=== PATIENT | female | born 1990 | race Caucasian/White ===

== ENCOUNTER 2018-05-05 22:02 | Emergency (ER) | payer OTHER ==
[2018-05-05 22:49] LABS: ABSOLUTE EOSINOPHILS # (AUTO) 0.1 10^3/uL (0.0-0.6); ABSOLUTE LYMPHOCYTES (AUTO) 1.7 10^3/uL (0.5-4.7); ABSOLUTE MONOCYTES (AUTO) 0.5 10^3/uL (0.1-1.4); ABSOLUTE NEUT (AUTO) 4.4 10^3/uL (1.7-8.2); BASOPHILS % (AUTO) 0.6 % (0-2); EOSINOPHILS % (AUTO) 1.2 % (0-6); HEMATOCRIT 42.6 % (36.0-47.0); HEMOGLOBIN 13.9 g/dL (12.0-15.5); LYMPHOCYTES % (AUTO) 25.6 % (13-45); MEAN CORPUSCULAR HEMOGLOBIN 25.6 pg (27.0-33.4); MEAN CORPUSCULAR HGB CONC 32.5 g/dL (32.0-36.0); MEAN CORPUSCULAR VOLUME 79 fl (80-97); MONOCYTES % (AUTO) 7.8 % (3-13); PLATELET COUNT 304 10^3/uL (150-450); RED BLOOD COUNT 5.41 10^6/uL (3.72-5.28); RED CELL DISTRIBUTION WIDTH 15.6 % (11.5-14.0); SEGMENTED NEUTROPHILS % (AUTO) 64.8 % (42-78); TOTAL CELLS COUNTED % (AUTO) 100 %; WHITE BLOOD COUNT 6.7 10^3/uL (4.0-10.5)
[2018-05-05 23:14] LABS: ANION GAP 18 (5-19); BLOOD UREA NITROGEN 14 mg/dL (7-20); CALCIUM 9.6 mg/dL (8.4-10.2); CARBON DIOXIDE 23 mmol/L (22-30); CHLORIDE 104 mmol/L (98-107); GLUCOSE 96 mg/dL (75-110); POTASSIUM 4.6 mmol/L (3.6-5.0); SODIUM 145.2 mmol/L (137-145)
[2018-05-05] MEDS ORDERED: LIDOCAINE 5% (700 MG) TRANSDERMAL ADH..PATCH TP ONE (23:23)
[2018-05-05] MEDS ORDERED: NORMAL SALINE 1000 ML 1,000 ML IV ONE (23:23)
[2018-05-05] MEDS ORDERED: LORAZEPAM 1 MG TABLET PO ONE (23:23)
--- NOTE | 2018-05-05 23:26 | RADIOLOGY REPORT (SQ) ---
EXAM DESCRIPTION: XR CHEST 1 VIEW COMPLETED DATE/TME: 05/05/2018 22:30 CLINICAL HISTORY: 27 years Female sob COMPARISON: None. FINDINGS: The cardiomediastinal silhouette appears unremarkable. No consolidating infiltrates or pleural effusions. No pneumothorax. IMPRESSION: No acute abnormality is identified.
--- NOTE | 2018-05-05 23:28 | ER Document Report ---
ED General - General Chief Complaint: Shortness Of Breath Stated Complaint: SHORT OF BREATH Time Seen by Provider: 05/05/18 22:26 Notes: Patient is a 27-year old female without chronic medical problems beyond anxiety and depression who presents with a sensation of chest tightness and shortness of breath started just prior to arrival. The patient states that she was sitting at her hotel room, was drinking wine when she began to feel a right- sided chest discomfort worsened with deep inspiration. She states that this caused her to begin to have an anxiety attack and prompted her to come to the hospital. The patient reports that she is having a mild, aching pain to that right side of her chest present only when she takes a deep breath. She denies any history of similar symptoms in the past. Denies any history of DVT or pulmonary embolus. Does not use any form of estrogen. Denies any unilateral leg swelling. Denies any cardiac history. She states overall she feels much better since arriving at the hospital. She is visiting from [place] has been unable to contact her primary care doctor regarding this concern. TRAVEL OUTSIDE OF THE [place] IN LAST 30 DAYS: No - Related Data Allergies/Adverse Reactions: acetaminophen [From Vicodin] Allergy (Verified 05/05/18 22:15) hydrocodone [From Vicodin] Allergy (Verified 05/05/18 22:15) Past Medical History - General Information source: Patient - Social History Smoking Status: Never Smoker Chew tobacco use (# tins/day): No Frequency of alcohol use: None Drug Abuse: None Lives with: Friend Family History: Reviewed & Not Pertinent Patient has suicidal ideation: No Patient has homicidal ideation: No Renal/ Medical History: Denies: Hx Peritoneal Dialysis Review of Systems - Review of Systems Notes: Constitutional: Negative for fever. HENT: Negative for sore throat. Eyes: Negative for visual changes. Cardiovascular: Positive for chest discomfort Respiratory: Positive for shortness of breath Gastrointestinal: Negative for abdominal pain, vomiting or diarrhea. Genitourinary: Negative for dysuria. Musculoskeletal: Negative for back pain. Skin: Negative for rash. Neurological: Negative for headaches, weakness or numbness. 10 point ROS negative except as marked above and in HPI. Physical Exam - Vital signs Vitals: Temp Pulse Resp BP Pulse Ox 98.4 F 120 H 32 H 136/93 H 100 05/05/18 22:09 05/05/18 22:09 05/05/18 22:09 05/05/18 22:09 05/05/18 22:09 Interpretation: Tachycardic, Tachypneic Notes: PHYSICAL EXAMINATION: GENERAL: Well-appearing, well-nourished and in no acute distress. HEAD: Atraumatic, normocephalic. EYES: Pupils equal round and reactive to light, extraocular movements intact, sclera anicteric, conjunctiva are normal. ENT: nares patent, oropharynx clear without exudates. Moist mucous membranes. NECK: Normal range of motion, supple without lymphadenopathy LUNGS: Breath sounds clear to auscultation bilaterally and equal. No wheezes rales or rhonchi. Chest wall: Mild discomfort with palpation of the right central chest wall HEART: Regular rate and rhythm without murmurs ABDOMEN: Soft, nontender, normoactive bowel sounds. No guarding, no rebound. No masses appreciated. EXTREMITIES: Normal range of motion, no pitting or edema. No cyanosis. NEUROLOGICAL: No focal neurological deficits. Moves all extremities spontaneously and on command. PSYCH: Moderately anxious SKIN: Warm, Dry, normal turgor, no rashes or lesions noted. Course - Re-evaluation Re-evalutation: 05/05/18 23:25 Presentation of chest pain in an otherwise well appearing patient. Low clinical suspicion for ACS given clinical history, exam, EKG without ST elevations or depressions, and negative initial troponin. HEART score less than or equal to 3. PE seems mildly possible given tachycardia and pleuritic pain. D-dimer will be obtained to clarify. Patient has no risk factors for PE. CXR without evidence of pneumothorax or pneumonia. No widened mediastinum. Aortic dissection also seems unlikely given history, symmetric pulses, CXR, and vitals. 05/06/18 00:11 D-dimer is normal. Patient's tachycardia has improved. She states she feels much better after receiving a dose of lorazepam. Given reassuring evaluation at this point he do not suspect any life-threatening etiology of her shortness of breath or chest discomfort. At this time will discharge with return precautions and follow-up recommendations. Verbal discharge instructions given a the bedside and opportunity for questions given. Medication warnings reviewed. Patient is in agreement with this plan and has verbalized understanding of return precautions and the need for primary care follow-up in the next 24-72 hours. - Vital Signs Vital signs: Temp Pulse Resp BP Pulse Ox 98.4 F 120 H 17 119/71 99 05/05/18 22:09 05/05/18 22:09 05/06/18 00:01 05/06/18 00:01 05/06/18 00:01 - Laboratory Result Diagrams: 05/05/18 22:35 05/05/18 22:35 Laboratory results interpreted by me: 05/05/18 05/05/18 22:35 22:35 RBC 5.41 H MCV 79 L MCH 25.6 L RDW 15.6 H Sodium 145.2 H - Diagnostic Test Radiology reviewed: Image reviewed, Reports reviewed Radiology results interpreted by me: 05/05/18 23:27 Chest x-ray: No acute infiltrate or pneumothorax - EKG Interpretation by Me Additional EKG results interpreted by me: 05/05/18 23:27 Sinus tachycardia. Rate 104. No ST elevations or depressions. QTC 432. Discharge - Discharge Clinical Impression: Shortness of breath, Chest discomfort Condition: Good Disposition: HOME, SELF-CARE Additional Instructions: You were seen today for chest pain. The exact cause of your pain is unclear. However, based on your cardiac enzyme testing, chest x-ray, and EKG it does not appear that it is from an immediately life-threatening cause at this time. Please return to emergency department immediately if you have worsening of your chest pain, shortness of breath, vomiting, become unable to exert yourself due to pain or difficulty breathing, you pass out, or have any pain that radiates into your arms, jaw, or back. Please also return if you have any additional symptoms that are concerning to you.
[2018-05-06 00:17] VITALS: BP 119/71
--- NOTE | 2018-05-06 10:41 | EKG REPORT ---
SEVERITY:- BORDERLINE ECG - SINUS TACHYCARDIA PROBABLE LEFT ATRIAL ABNORMALITY : Confirmed by: Vianey Navarrete 06-May-2018 10:39:51
== END 2018-05-06 00:28 | disposition home or self-care (01) ==
LOC: ER 22:02
DX: R06.02 Shortness of breath (principal); R07.9 Chest pain, unspecified; Z88.6 Allergy status to analgesic agent
CPT/HCPCS: 93005; 99285; 96360; 36415; 85025; 80048; 84484; 85379; 71045; 93010; J7030

== ENCOUNTER 2018-05-07 13:30 | Emergency (ER) | payer OTHER ==
[2018-05-07 13:36] VITALS: BP 131/91
[2018-05-07] MEDS ORDERED: LIDOCAINE 1% INJ-PF (10 MG/ML) 30 ML SDV INJ ONE (14:32)
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
== END 2018-05-07 15:32 | disposition home or self-care (01) ==
LOC: ER 13:30
DX: S61.012A Laceration without foreign body of left thumb without damage to nail, initial encounter (principal); W33.19XA Accidental malfunction of other larger firearm, initial encounter; Y92.89 Other specified places as the place of occurrence of the external cause
CPT/HCPCS: 99282; 12001; J3490